=== PATIENT | female | born 1935 | race Caucasian/White ===

== ENCOUNTER 2021-09-09 11:00 | Inpatient (IN) | payer MEDICARE ==
[2021-09-09] MEDS ORDERED: Acetaminophen 325 MG TAB PO PRN (12:12)
[2021-09-09 12:27] VITALS: BMI 30.7
[2021-09-09] MEDS ORDERED: Furosemide 40 MG/4 ML VIAL SLOW IVP SCH ×2 (12:30→16:00)
[2021-09-09] MEDS ORDERED: VANCOMYCIN 1.75 GM/350 ML BAG 1.75 GM in Premix Bag 1 BAG IVPB SCH (13:00)
[2021-09-09 13:05] LABS: Hemoglobin 11.4 g/dL (12.0-15.5); Mean Corpuscular HGB CONC 32.9 g/dL (32.0-36.0); Mean Corpuscular Hemoglobin 30.5 pg (27.0-33.0); Mean Corpuscular Volume 92.8 fl (81.6-98.3); Mean Platelet Volume 9.2 fl (7.4-10.4); Platelet Count 398 10x3/uL (150-450); RBC Distribution Width 13.4 % (11.5-14.5); Red Blood Cell (RBC) Count 3.74 10x6/uL (3.90-5.03); White Blood Cell (WBC) Count 7.9 10x3/uL (3.5-10.5)
[2021-09-09 13:06] LABS: #Monocytes 1.3 10x3/uL (0.0-1.1); #Neutrophils 6.1 10x3/uL (1.5-8.4); %Basophils 0.3 % (0.0-2.0); %Eosinophils 0.3 % (0.0-6.0); %Monocytes 16.3 % (0.0-10.0); %Neutrophils 77.5 % (40.0-75.0)
[2021-09-09 13:47] LABS: ALT (SGPT) 19 U/L (8-55); AST (SGOT) 17 U/L (5-34); Albumin 3.6 g/dL (3.4-4.8); Alkaline Phosphatase 72 U/L (40-110); Anion Gap 15 mmol/L (10-20); BUN (Urea Nitrogen) 9 mg/dL (9.8-20.1); Bilirubin, Total 0.5 mg/dL (0.2-1.2); Calc. Creatinine Clearance 88 mL/min (70-130); Calcium 8.9 mg/dL (7.8-10.44); Carbon Dioxide 29 mmol/L (23-31); Chloride 91 mmol/L (98-107); Globulin 2.7 g/dL (2.4-3.5); Glucose 110 mg/dL (83-110); Potassium 4.4 mmol/L (3.5-5.1); Protein, Total 6.3 g/dL (5.8-8.1); Sodium 131 mmol/L (136-145)
[2021-09-09 13:50] LABS: Eosinophils 1 % (0-10); Lymphocytes 5 % (21-51); Monocytes 11 % (0-10); Reactive Lymphocytes 1 % (0-10)
[2021-09-09 13:51] LABS: Platelet Morphology Comment Appears Adequate
[2021-09-09] MEDS ORDERED: Sodium Chloride 0.9% 100 ML ONE (14:18)
[2021-09-09] MEDS: HYDROcodone/Acetaminophen 5/325 mg Tablet PO PRN ×2 (14:21→21:17)
[2021-09-09] MEDS: Diltiazem 125 MG in Sodium Chloride 0.9% 100 ML IVPB SCH (14:55)
[2021-09-09] MEDS ORDERED: FLU VACC QS2021-22(65YR UP)/PF 240 MCG/0.7 ML SYRINGE IM ONE (15:00)
[2021-09-09] MEDS: Cefepime 1 GM in Sodium Chloride 0.9% 100 ML IVPB SCH (20:43)
[2021-09-09] MEDS: Enoxaparin Sodium 80 MG/0.8 ML SYRINGE SC SCH (20:44)
[2021-09-09] MEDS ORDERED: Lorazepam 2 MG/ML VIAL SLOW IVP SCH (21:15)
[2021-09-10] MEDS: ALPRAZolam 0.5 MG TAB PO PRN (00:31)
[2021-09-10] MEDS: HYDROcodone/Acetaminophen 5/325 mg Tablet PO PRN ×5 (02:36→20:51)
[2021-09-10 04:02] LABS: Hemoglobin 11.8 g/dL (12.0-15.5); Mean Corpuscular Hemoglobin 30.7 pg (27.0-33.0); Mean Corpuscular Volume 90.4 fl (81.6-98.3); Platelet Count 405 10x3/uL (150-450); RBC Distribution Width 13.6 % (11.5-14.5); Red Blood Cell (RBC) Count 3.84 10x6/uL (3.90-5.03); White Blood Cell (WBC) Count 7.5 10x3/uL (3.5-10.5)
[2021-09-10 04:15] LABS: Anion Gap 15 mmol/L (10-20); BUN (Urea Nitrogen) 9 mg/dL (9.8-20.1); Calc. Creatinine Clearance 94 mL/min (70-130); Carbon Dioxide 30 mmol/L (23-31); Chloride 90 mmol/L (98-107); Glucose 115 mg/dL (83-110); Potassium 3.9 mmol/L (3.5-5.1); Sodium 131 mmol/L (136-145)
[2021-09-10 04:16] LABS: INR-International Normal Ratio 1.1
[2021-09-10 04:20] LABS: MDiff Complete? YES
[2021-09-10 04:28] LABS: Band 2 % (5-11); Lymphocytes 3 % (21-51); Monocytes 18 % (0-10); Neutrophil 72 % (42-75); Reactive Lymphocytes 4 % (0-10)
[2021-09-10 04:31] LABS: RBC Morphology Normal
[2021-09-10 04:32] LABS: Platelet Morphology Comment Appears Adequate
[2021-09-10] MEDS: Diltiazem 125 MG in Sodium Chloride 0.9% 100 ML IVPB SCH (04:45)
[2021-09-10] MEDS ORDERED: Lidocaine 1% PF 5 ML VIAL ONE (08:10)
[2021-09-10] MEDS ORDERED: Sodium Bicarbonate 2.5 MEQ/5 ML VIAL ONE (08:10)
[2021-09-10] MEDS: Cefepime 1 GM in Sodium Chloride 0.9% 100 ML IVPB SCH ×2 (09:22→20:03)
[2021-09-10] MEDS: Enoxaparin Sodium 80 MG/0.8 ML SYRINGE SC SCH (09:22)
[2021-09-10] MEDS: Furosemide 40 MG/4 ML VIAL SLOW IVP SCH (09:22)
[2021-09-10] MEDS ORDERED: Polyethylene Glycol 3350 17 GM Packet PO PRN (11:43)
[2021-09-10] MEDS: Senokot S 8.6-50 MG TAB PO PRN (12:12)
[2021-09-10] MEDS ORDERED: VANCOMYCIN 1.25 GM/250 ML BAG 1.25 GM in Premix Bag 1 BAG IVPB SCH (15:00)
[2021-09-10 19:43] LABS: Pleural Fluid, Amylase Less than 30 U/L (Not Available); Pleural Fluid, Glucose 26 mg/dL; Pleural Fluid, LDH 3613 U/L (Not Available)
[2021-09-10] MEDS: Cepastat Lozenges 1 LOZ PO PRN (20:03)
[2021-09-10] MEDS: Apixaban 5 MG TAB PO SCH (20:03)
[2021-09-10] MEDS: Senokot S 8.6-50 MG TAB PO SCH (20:03)
[2021-09-11] MEDS: HYDROcodone/Acetaminophen 5/325 mg Tablet PO PRN ×3 (01:59→20:43)
[2021-09-11] MEDS: Cepastat Lozenges 1 LOZ PO PRN (02:00)
[2021-09-11 05:09] LABS: Anion Gap 15 mmol/L (10-20); BUN (Urea Nitrogen) 11 mg/dL (9.8-20.1); CRP (Inflammatory) 13.02 mg/dL (= or < 0.5); Calc. Creatinine Clearance 85 mL/min (70-130); Calcium 8.7 mg/dL (7.8-10.44); Carbon Dioxide 28 mmol/L (23-31); Chloride 90 mmol/L (98-107); Glucose 114 mg/dL (83-110); Magnesium 1.6 mg/dL (1.6-2.6); Potassium 3.7 mmol/L (3.5-5.1); Sodium 129 mmol/L (136-145)
[2021-09-11 05:18] LABS: Hemoglobin 11.3 g/dL (12.0-15.5); Mean Corpuscular HGB CONC 33.5 g/dL (32.0-36.0); Mean Corpuscular Volume 89.4 fl (81.6-98.3); Mean Platelet Volume 8.8 fl (7.4-10.4); Platelet Count 386 10x3/uL (150-450); RBC Distribution Width 13.4 % (11.5-14.5); Red Blood Cell (RBC) Count 3.77 10x6/uL (3.90-5.03); White Blood Cell (WBC) Count 6.5 10x3/uL (3.5-10.5)
[2021-09-11 05:31] LABS: MDiff Complete? YES; RBC Morphology Normal
[2021-09-11 05:32] LABS: Platelet Morphology Comment Appears Adequate
[2021-09-11 05:43] LABS: Band 3 % (5-11); Lymphocytes 8 % (21-51); Monocytes 17 % (0-10); Neutrophil 72 % (42-75)
[2021-09-11 05:44] LABS: Platelet Clumps SLIGHT
[2021-09-11] MEDS: Apixaban 5 MG TAB PO SCH ×2 (08:27→20:42)
[2021-09-11] MEDS: Cefepime 1 GM in Sodium Chloride 0.9% 100 ML IVPB SCH ×2 (08:27→20:43)
[2021-09-11] MEDS: Furosemide 40 MG/4 ML VIAL SLOW IVP SCH (08:27)
[2021-09-11] MEDS ORDERED: Potassium Chloride 20 MEQ TAB PO SCH (09:00)
[2021-09-11] MEDS ORDERED: Losartan Potassium 50 MG TAB PO SCH (10:00)
[2021-09-11] MEDS: SODIUM CHLORIDE 0.9% IVPB SCH ×2 (11:07→12:44)
[2021-09-11] MEDS: MAGNESIUM IVPB SCH ×2 (11:07→12:44)
[2021-09-11] MEDS: Digoxin 0.125 MG TAB PO SCH ×2 (11:08→11:46)
[2021-09-11] MEDS: Senokot S 8.6-50 MG TAB PO SCH ×2 (11:10→20:44)
[2021-09-11] MEDS ORDERED: Digoxin 0.125 MG TAB PO SCH (12:00)
[2021-09-11] MEDS ORDERED: Magnesium 2 GM/50 ML 2 GM in Premix Bag 1 BAG IVPB SCH (12:00)
[2021-09-11 14:22] LABS: Vancomycin, Trough 7.5 ug/mL
[2021-09-11] MEDS: Vancomycin HCl 1 GM in Sodium Chloride 0.9% 250 ML 250 ML IVPB SCH (15:34)
[2021-09-11] MEDS: ALPRAZolam 0.5 MG TAB PO PRN (20:43)
[2021-09-11] MEDS ORDERED: Temazepam 15 MG CAP PO SCH (21:00)
[2021-09-12] MEDS: HYDROcodone/Acetaminophen 5/325 mg Tablet PO PRN ×4 (02:20→22:48)
[2021-09-12] MEDS: Vancomycin HCl 1 GM in Sodium Chloride 0.9% 250 ML 250 ML IVPB SCH ×2 (02:20→16:42)
[2021-09-12 04:18] LABS: Hemoglobin 10.2 g/dL (12.0-15.5); Mean Corpuscular HGB CONC 33.3 g/dL (32.0-36.0); Mean Corpuscular Hemoglobin 30.5 pg (27.0-33.0); Mean Corpuscular Volume 91.6 fl (81.6-98.3); Mean Platelet Volume 9.4 fl (7.4-10.4); Platelet Count 394 10x3/uL (150-450); RBC Distribution Width 13.3 % (11.5-14.5); Red Blood Cell (RBC) Count 3.34 10x6/uL (3.90-5.03); White Blood Cell (WBC) Count 5.9 10x3/uL (3.5-10.5)
[2021-09-12 04:30] LABS: ALT (SGPT) 14 U/L (8-55); AST (SGOT) 15 U/L (5-34); Albumin 2.9 g/dL (3.4-4.8); Alkaline Phosphatase 66 U/L (40-110); Anion Gap 12 mmol/L (10-20); BUN (Urea Nitrogen) 10 mg/dL (9.8-20.1); Bilirubin, Total 0.4 mg/dL (0.2-1.2); Calc. Creatinine Clearance 88 mL/min (70-130); Calcium 8.3 mg/dL (7.8-10.44); Carbon Dioxide 27 mmol/L (23-31); Chloride 94 mmol/L (98-107); Globulin 2.4 g/dL (2.4-3.5); Glucose 113 mg/dL (83-110); Potassium 4.2 mmol/L (3.5-5.1); Protein, Total 5.3 g/dL (5.8-8.1); Sodium 129 mmol/L (136-145)
[2021-09-12 04:37] LABS: MDiff Complete? YES
[2021-09-12 04:42] LABS: Lymphocytes 3 % (21-51); Monocytes 18 % (0-10); Neutrophil 79 % (42-75)
[2021-09-12 04:43] LABS: Anisocytosis SLIGHT = 6-15 cells (100X) (0-5/hpf)
[2021-09-12 04:44] LABS: Platelet Morphology Comment Appears Adequate
[2021-09-12 08:29] LABS: Magnesium 2.4 mg/dL (1.6-2.6)
[2021-09-12] MEDS: Digoxin 0.125 MG TAB PO SCH (09:19)
[2021-09-12] MEDS: Losartan Potassium 50 MG TAB PO SCH (09:20)
[2021-09-12] MEDS: Cefepime 1 GM in Sodium Chloride 0.9% 100 ML IVPB SCH ×2 (09:20→20:03)
[2021-09-12] MEDS: Apixaban 5 MG TAB PO SCH ×2 (09:20→20:05)
[2021-09-12] MEDS: Senokot S 8.6-50 MG TAB PO SCH ×2 (09:54→20:15)
[2021-09-12] MEDS: ALPRAZolam 0.5 MG TAB PO PRN (20:05)
[2021-09-12] MEDS: Temazepam 15 MG CAP PO SCH (20:05)
[2021-09-13 02:28] LABS: Vancomycin, Trough 18.1 ug/mL
[2021-09-13 02:33] LABS: Hemoglobin 10.3 g/dL (12.0-15.5); Mean Corpuscular HGB CONC 33.2 g/dL (32.0-36.0); Mean Corpuscular Hemoglobin 30.3 pg (27.0-33.0); Mean Corpuscular Volume 91.2 fl (81.6-98.3); Mean Platelet Volume 9.1 fl (7.4-10.4); Platelet Count 399 10x3/uL (150-450); RBC Distribution Width 13.6 % (11.5-14.5); White Blood Cell (WBC) Count 5.9 10x3/uL (3.5-10.5)
[2021-09-13 02:39] LABS: Anion Gap 13 mmol/L (10-20); BUN (Urea Nitrogen) 10 mg/dL (9.8-20.1); CRP (Inflammatory) 9.21 mg/dL (= or < 0.5); Calc. Creatinine Clearance 79 mL/min (70-130); Calcium 8.6 mg/dL (7.8-10.44); Carbon Dioxide 28 mmol/L (23-31); Chloride 93 mmol/L (98-107); Glucose 115 mg/dL (83-110); Potassium 4.5 mmol/L (3.5-5.1); Sodium 129 mmol/L (136-145)
[2021-09-13 02:44] LABS: MDiff Complete? YES
[2021-09-13 02:45] LABS: Platelet Morphology Comment Appears Adequate; RBC Morphology Normal
[2021-09-13 02:47] LABS: Lymphocytes 5 % (21-51); Monocytes 21 % (0-10); Neutrophil 74 % (42-75)
[2021-09-13] MEDS: Vancomycin HCl 1 GM in Sodium Chloride 0.9% 250 ML 250 ML IVPB SCH ×2 (03:03→15:27)
[2021-09-13] MEDS: Cepastat Lozenges 1 LOZ PO PRN ×2 (03:16→20:24)
[2021-09-13] MEDS ORDERED: Lidocaine 5% Patch TD SCH (10:00)
[2021-09-13] MEDS: HYDROcodone/Acetaminophen 5/325 mg Tablet PO PRN ×3 (10:49→20:25)
[2021-09-13] MEDS: Apixaban 5 MG TAB PO SCH ×2 (10:50→20:24)
[2021-09-13] MEDS: Digoxin 0.125 MG TAB PO SCH (10:50)
[2021-09-13] MEDS: Furosemide 40 MG TAB PO SCH (10:51)
[2021-09-13] MEDS: Cefepime 1 GM in Sodium Chloride 0.9% 100 ML IVPB SCH ×2 (10:51→20:23)
[2021-09-13] MEDS: Senokot S 8.6-50 MG TAB PO SCH ×2 (10:52→20:29)
[2021-09-13] MEDS: Losartan Potassium 50 MG TAB PO SCH (10:52)
[2021-09-13] MEDS ORDERED: Vancomycin HCl 750 MG in Sodium Chloride 0.9% 250 ML 250 ML IVPB SCH (15:00)
[2021-09-13] MEDS: Temazepam 15 MG CAP PO SCH (20:24)
[2021-09-13] MEDS: ALPRAZolam 0.5 MG TAB PO PRN (20:24)
[2021-09-13] MEDS: Transdermal Patch Removal TOP SCH (20:29)
[2021-09-14] MEDS: Vancomycin HCl 1 GM in Sodium Chloride 0.9% 250 ML 250 ML IVPB SCH ×2 (02:28→15:24)
[2021-09-14 05:01] LABS: #Eosinphils 0.1 10x3/uL (0.0-0.5); %Basophils 0.4 % (0.0-2.0); %Eosinophils 0.9 % (0.0-6.0); %Lymphocytes 5.6 % (18.0-47.0); %Monocytes 18.1 % (0.0-10.0); %Neutrophils 74.4 % (40.0-75.0); Hemoglobin 10.2 g/dL (12.0-15.5); Mean Corpuscular HGB CONC 32.3 g/dL (32.0-36.0); Mean Corpuscular Hemoglobin 29.9 pg (27.0-33.0); Mean Corpuscular Volume 92.7 fl (81.6-98.3); Mean Platelet Volume 9.3 fl (7.4-10.4); Platelet Count 362 10x3/uL (150-450); RBC Distribution Width 13.6 % (11.5-14.5); Red Blood Cell (RBC) Count 3.41 10x6/uL (3.90-5.03); White Blood Cell (WBC) Count 5.4 10x3/uL (3.5-10.5)
[2021-09-14 05:04] LABS: ALT (SGPT) 13 U/L (8-55); AST (SGOT) 16 U/L (5-34); Albumin 2.9 g/dL (3.4-4.8); Alkaline Phosphatase 62 U/L (40-110); Anion Gap 11 mmol/L (10-20); BUN (Urea Nitrogen) 9 mg/dL (9.8-20.1); Bilirubin, Total 0.3 mg/dL (0.2-1.2); CRP (Inflammatory) 7.81 mg/dL (= or < 0.5); Calc. Creatinine Clearance 80 mL/min (70-130); Calcium 8.7 mg/dL (7.8-10.44); Carbon Dioxide 29 mmol/L (23-31); Chloride 97 mmol/L (98-107); Globulin 2.4 g/dL (2.4-3.5); Glucose 106 mg/dL (83-110); Magnesium 1.8 mg/dL (1.6-2.6); Potassium 4.2 mmol/L (3.5-5.1); Protein, Total 5.3 g/dL (5.8-8.1); Sodium 133 mmol/L (136-145)
[2021-09-14] MEDS: HYDROcodone/Acetaminophen 5/325 mg Tablet PO PRN ×4 (05:40→21:42)
[2021-09-14 05:52] LABS: Lymphocytes 5 % (21-51); Monocytes 17 % (0-10)
[2021-09-14] MEDS: Furosemide 40 MG TAB PO SCH (09:57)
[2021-09-14] MEDS: Lidocaine 5% Patch TD SCH (09:57)
[2021-09-14] MEDS: Apixaban 5 MG TAB PO SCH (09:57)
[2021-09-14] MEDS: Digoxin 0.125 MG TAB PO SCH (09:57)
[2021-09-14] MEDS: Losartan Potassium 50 MG TAB PO SCH (09:57)
[2021-09-14] MEDS: Senokot S 8.6-50 MG TAB PO SCH ×2 (09:58→21:35)
[2021-09-14] MEDS: Cefepime 1 GM in Sodium Chloride 0.9% 100 ML IVPB SCH ×2 (09:59→21:31)
[2021-09-14] MEDS: Temazepam 15 MG CAP PO SCH (21:32)
[2021-09-14] MEDS: ALPRAZolam 0.5 MG TAB PO PRN (21:32)
[2021-09-14] MEDS ORDERED: Cefepime 1 GM VIAL ONE (21:32)
[2021-09-15 02:16] LABS: Vancomycin, Trough 27.2 ug/mL
[2021-09-15] MEDS: HYDROcodone/Acetaminophen 5/325 mg Tablet PO PRN ×4 (04:26→20:40)
[2021-09-15] MEDS: Transdermal Patch Removal TOP SCH ×2 (11:26→21:07)
[2021-09-15] MEDS: Digoxin 0.125 MG TAB PO SCH (11:27)
[2021-09-15] MEDS: Losartan Potassium 50 MG TAB PO SCH (11:27)
[2021-09-15] MEDS: Lidocaine 5% Patch TD SCH (11:27)
[2021-09-15] MEDS: Furosemide 40 MG TAB PO SCH (11:27)
[2021-09-15] MEDS: Cefepime 1 GM in Sodium Chloride 0.9% 100 ML IVPB SCH ×2 (11:27→20:44)
[2021-09-15] MEDS: Senokot S 8.6-50 MG TAB PO SCH ×2 (11:28→20:37)
[2021-09-15 15:00] LABS: Vancomycin, Random 18.3 ug/mL (See Comment)
[2021-09-15 15:12] LABS: ANA Symphony (Qualitative) Negative (Negative); ANA Symphony (Quantitative) 0.5 Ratio (< 0.7 Negative); CCP IgG Antibody 2.5 EliAU/mL (<7 Negative); EliA RAS New Method **** NEW METHOD ****; Rheumatoid Factor IgA Antibody 7.2 IU/mL (<14 Negative); dsDNA IgG Antibody 1.1 IU/mL (<10 Negative)
[2021-09-15] MEDS: Vancomycin HCl 1 GM in Sodium Chloride 0.9% 250 ML 250 ML IVPB SCH (16:51)
[2021-09-15] MEDS: Temazepam 15 MG CAP PO SCH (20:39)
[2021-09-15] MEDS: ALPRAZolam 0.5 MG TAB PO PRN (20:40)
[2021-09-16] MEDS ORDERED: Melatonin 3 MG TAB PO SCH (03:00)
[2021-09-16] MEDS: HYDROcodone/Acetaminophen 5/325 mg Tablet PO PRN ×4 (04:44→20:11)
[2021-09-16 05:04] LABS: Hemoglobin 10.2 g/dL (12.0-15.5); Mean Corpuscular HGB CONC 32.6 g/dL (32.0-36.0); Mean Corpuscular Volume 92.1 fl (81.6-98.3); Mean Platelet Volume 9.3 fl (7.4-10.4); Platelet Count 354 10x3/uL (150-450); RBC Distribution Width 13.7 % (11.5-14.5); White Blood Cell (WBC) Count 5.6 10x3/uL (3.5-10.5)
[2021-09-16 05:15] LABS: MDiff Complete? YES
[2021-09-16 05:17] LABS: Anion Gap 12 mmol/L (10-20); BUN (Urea Nitrogen) 9 mg/dL (9.8-20.1); Calc. Creatinine Clearance 78 mL/min (70-130); Carbon Dioxide 29 mmol/L (23-31); Chloride 95 mmol/L (98-107); Glucose 106 mg/dL (83-110); Potassium 4.1 mmol/L (3.5-5.1); Sodium 132 mmol/L (136-145)
[2021-09-16 05:23] LABS: Lymphocytes 7 % (21-51); Monocytes 14 % (0-10); Neutrophil 79 % (42-75)
[2021-09-16 05:25] LABS: Platelet Morphology Comment Appears Adequate
[2021-09-16 05:26] LABS: RBC Morphology Normal
[2021-09-16] MEDS: Lidocaine 5% Patch TD SCH (09:06)
[2021-09-16] MEDS: ALPRAZolam 0.5 MG TAB PO PRN ×2 (09:09→20:11)
[2021-09-16] MEDS: Losartan Potassium 50 MG TAB PO SCH (09:10)
[2021-09-16] MEDS: Senokot S 8.6-50 MG TAB PO SCH ×2 (09:10→20:13)
[2021-09-16] MEDS: Digoxin 0.125 MG TAB PO SCH (09:10)
[2021-09-16] MEDS: Furosemide 40 MG TAB PO SCH (09:10)
[2021-09-16] MEDS: Cefepime 1 GM in Sodium Chloride 0.9% 100 ML IVPB SCH ×2 (09:11→20:11)
[2021-09-16] MEDS: Ondansetron PF 4 MG/2 ML Vial IVP PRN (10:29)
[2021-09-16 16:09] LABS: Vancomycin, Random 14.7 ug/mL (See Comment)
[2021-09-16] MEDS: Guaifenesin DM 100-10/5 ML UDCUP PO PRN (17:18)
[2021-09-16] MEDS: Vancomycin HCl 1 GM in Sodium Chloride 0.9% 250 ML 250 ML IVPB SCH (17:18)
[2021-09-16] MEDS: Cepastat Lozenges 1 LOZ PO PRN (20:11)
[2021-09-16] MEDS: Temazepam 15 MG CAP PO SCH (20:11)
[2021-09-16] MEDS: Transdermal Patch Removal TOP SCH (20:13)
[2021-09-17 04:40] LABS: Hemoglobin 9.8 g/dL (12.0-15.5); Mean Corpuscular HGB CONC 32.6 g/dL (32.0-36.0); Mean Corpuscular Hemoglobin 30.1 pg (27.0-33.0); Mean Corpuscular Volume 92.3 fl (81.6-98.3); Mean Platelet Volume 9.4 fl (7.4-10.4); Platelet Count 334 10x3/uL (150-450); RBC Distribution Width 13.8 % (11.5-14.5); Red Blood Cell (RBC) Count 3.26 10x6/uL (3.90-5.03); White Blood Cell (WBC) Count 4.9 10x3/uL (3.5-10.5)
[2021-09-17 04:53] LABS: Anion Gap 11 mmol/L (10-20); BUN (Urea Nitrogen) 10 mg/dL (9.8-20.1); Calc. Creatinine Clearance 72 mL/min (70-130); Calcium 8.8 mg/dL (7.8-10.44); Carbon Dioxide 30 mmol/L (23-31); Chloride 96 mmol/L (98-107); Glucose 102 mg/dL (83-110); Potassium 4.3 mmol/L (3.5-5.1); Sodium 133 mmol/L (136-145)
[2021-09-17 05:07] LABS: MDiff Complete? YES
[2021-09-17 05:40] LABS: SARS-CoV-2 NAA Rapid Test Not Detected (NotDetected)
[2021-09-17 05:43] LABS: Lymphocytes 5 % (21-51); Monocytes 15 % (0-10); Neutrophil 78 % (42-75); Reactive Lymphocytes 2 % (0-10)
[2021-09-17 05:44] LABS: Platelet Morphology Comment Appears Adequate
[2021-09-17] MEDS: Digoxin 0.125 MG TAB PO SCH (05:44)
[2021-09-17 05:45] LABS: RBC Morphology Normal
[2021-09-17] MEDS: Losartan Potassium 50 MG TAB PO SCH (05:46)
[2021-09-17] MEDS ORDERED: EPINEPHrine 1 MG/ML AMP ONE (08:43)
[2021-09-17] MEDS ORDERED: Bupivacaine 0.25% HCL 30 ML VIAL ONE (08:43)
[2021-09-17] MEDS ORDERED: PROPOFOL 20 ML ONE (08:47)
[2021-09-17] MEDS ORDERED: Fentanyl 100 MCG/2 ML VIAL ONE (08:47)
[2021-09-17] MEDS ORDERED: Lidocaine 1% PF 5 ML VIAL ONE (08:48)
[2021-09-17] MEDS ORDERED: CEFAZOLIN 1 GM VIAL ONE (08:58)
[2021-09-17] MEDS ORDERED: Ondansetron PF 4 MG/2 ML Vial ONE (09:12)
[2021-09-17] MEDS: Lidocaine 5% Patch TD SCH (12:51)
[2021-09-17] MEDS: Furosemide 40 MG TAB PO SCH (12:51)
[2021-09-17] MEDS: Cefepime 1 GM in Sodium Chloride 0.9% 100 ML IVPB SCH ×2 (12:51→20:26)
[2021-09-17] MEDS: Senokot S 8.6-50 MG TAB PO SCH ×2 (12:51→20:25)
[2021-09-17] MEDS: ALPRAZolam 0.5 MG TAB PO PRN ×2 (12:54→20:25)
[2021-09-17] MEDS: HYDROcodone/Acetaminophen 5/325 mg Tablet PO PRN ×3 (12:54→22:20)
[2021-09-17] MEDS: Vancomycin HCl 1 GM in Sodium Chloride 0.9% 250 ML 250 ML IVPB SCH (18:36)
[2021-09-17] MEDS: Guaifenesin DM 100-10/5 ML UDCUP PO PRN (18:47)
[2021-09-17] MEDS: Temazepam 15 MG CAP PO SCH (20:25)
[2021-09-17] MEDS: Cepastat Lozenges 1 LOZ PO PRN (20:25)
[2021-09-17] MEDS: Transdermal Patch Removal TOP SCH (20:26)
[2021-09-17] MEDS ORDERED: Fluticasone Propionate Nasal Spray 16 gm Bottle NASAL PRN (20:48)
[2021-09-18 05:11] LABS: Mean Corpuscular HGB CONC 32.6 g/dL (32.0-36.0); Mean Corpuscular Hemoglobin 30.1 pg (27.0-33.0); Mean Corpuscular Volume 92.5 fl (81.6-98.3); Mean Platelet Volume 9.4 fl (7.4-10.4); Platelet Count 324 10x3/uL (150-450); RBC Distribution Width 13.8 % (11.5-14.5); Red Blood Cell (RBC) Count 3.32 10x6/uL (3.90-5.03); White Blood Cell (WBC) Count 4.8 10x3/uL (3.5-10.5)
[2021-09-18 05:22] LABS: MDiff Complete? YES
[2021-09-18 05:27] LABS: Anion Gap 11 mmol/L (10-20); BUN (Urea Nitrogen) 11 mg/dL (9.8-20.1); Calc. Creatinine Clearance 69 mL/min (70-130); Calcium 8.8 mg/dL (7.8-10.44); Carbon Dioxide 30 mmol/L (23-31); Chloride 97 mmol/L (98-107); Glucose 104 mg/dL (83-110); Potassium 4.2 mmol/L (3.5-5.1); Sodium 134 mmol/L (136-145)
[2021-09-18 05:28] LABS: Band 2 % (5-11); Eosinophils 2 % (0-10); Lymphocytes 1 % (21-51); Monocytes 19 % (0-10); Myelocyte 1 % (0-0); Neutrophil 73 % (42-75); Nucleated RBC 1 % (0); Reactive Lymphocytes 2 % (0-10)
[2021-09-18 05:30] LABS: Platelet Morphology Comment Appears Adequate; RBC Morphology Normal
[2021-09-18] MEDS: HYDROcodone/Acetaminophen 5/325 mg Tablet PO PRN ×3 (06:43→20:45)
[2021-09-18] MEDS: Cefepime 1 GM in Sodium Chloride 0.9% 100 ML IVPB SCH ×2 (09:13→20:44)
[2021-09-18] MEDS: Furosemide 40 MG TAB PO SCH (09:13)
[2021-09-18] MEDS: Losartan Potassium 50 MG TAB PO SCH (09:14)
[2021-09-18] MEDS: Digoxin 0.125 MG TAB PO SCH (09:14)
[2021-09-18] MEDS: Senokot S 8.6-50 MG TAB PO PRN (09:14)
[2021-09-18] MEDS: Lidocaine 5% Patch TD SCH (09:14)
[2021-09-18] MEDS: Senokot S 8.6-50 MG TAB PO SCH ×2 (09:16→22:15)
[2021-09-18] MEDS: Ondansetron PF 4 MG/2 ML Vial IVP PRN ×2 (10:59→20:46)
[2021-09-18] MEDS ORDERED: Enoxaparin Sodium 80 MG/0.8 ML SYRINGE SC SCH ×2 (11:30→21:00)
[2021-09-18] MEDS ORDERED: Enoxaparin Sodium 80 MG/0.8 ML SYRINGE ONE (12:03)
[2021-09-18 16:30] LABS: Vancomycin, Trough 15.1 ug/mL
[2021-09-18] MEDS: Vancomycin HCl 1 GM in Sodium Chloride 0.9% 250 ML 250 ML IVPB SCH (16:31)
[2021-09-18] MEDS: Temazepam 15 MG CAP PO SCH (20:45)
[2021-09-18] MEDS: ALPRAZolam 0.5 MG TAB PO PRN (20:45)
[2021-09-18] MEDS: Guaifenesin DM 100-10/5 ML UDCUP PO PRN (20:46)
[2021-09-18] MEDS: Cepastat Lozenges 1 LOZ PO PRN (20:46)
[2021-09-18] MEDS: Transdermal Patch Removal TOP SCH (22:24)
[2021-09-19] MEDS: HYDROcodone/Acetaminophen 5/325 mg Tablet PO PRN ×2 (04:25→08:51)
[2021-09-19 04:57] LABS: #Eosinphils 0.1 10x3/uL (0.0-0.5); #Neutrophils 3.3 10x3/uL (1.5-8.4); %Basophils 0.4 % (0.0-2.0); %Eosinophils 1.1 % (0.0-6.0); %Lymphocytes 4.6 % (18.0-47.0); %Monocytes 21.2 % (0.0-10.0); Hemoglobin 9.8 g/dL (12.0-15.5); Mean Corpuscular HGB CONC 32.2 g/dL (32.0-36.0); Mean Corpuscular Hemoglobin 29.8 pg (27.0-33.0); Mean Corpuscular Volume 92.4 fl (81.6-98.3); Mean Platelet Volume 9.5 fl (7.4-10.4); Platelet Count 314 10x3/uL (150-450); RBC Distribution Width 13.6 % (11.5-14.5); Red Blood Cell (RBC) Count 3.29 10x6/uL (3.90-5.03); White Blood Cell (WBC) Count 4.6 10x3/uL (3.5-10.5)
[2021-09-19 05:03] LABS: Anion Gap 12 mmol/L (10-20); BUN (Urea Nitrogen) 10 mg/dL (9.8-20.1); Calc. Creatinine Clearance 74 mL/min (70-130); Calcium 8.7 mg/dL (7.8-10.44); Carbon Dioxide 32 mmol/L (23-31); Chloride 93 mmol/L (98-107); Glucose 105 mg/dL (83-110); Potassium 3.6 mmol/L (3.5-5.1); Sodium 133 mmol/L (136-145)
[2021-09-19] MEDS: Lidocaine 5% Patch TD SCH (08:46)
[2021-09-19] MEDS: Furosemide 40 MG TAB PO SCH (08:51)
[2021-09-19] MEDS: Senokot S 8.6-50 MG TAB PO SCH (08:51)
[2021-09-19] MEDS: Digoxin 0.125 MG TAB PO SCH (08:51)
[2021-09-19] MEDS: ALPRAZolam 0.5 MG TAB PO PRN (08:51)
[2021-09-19] MEDS: Cefepime 1 GM in Sodium Chloride 0.9% 100 ML IVPB SCH (08:52)
[2021-09-19] MEDS: Losartan Potassium 50 MG TAB PO SCH (08:53)
[2021-09-19] MEDS ORDERED: Enoxaparin Sodium 80 MG/0.8 ML SYRINGE SC SCH (09:00)
[2021-09-19] MEDS ORDERED: Furosemide 20 MG/2 ML VIAL SLOW IVP SCH (09:15)
[2021-09-19 12:01] VITALS: BP 120/72; TEMP 97.7
== END 2021-09-19 13:20 | DRG 264 ==
LOC: CSHTELE 11:00 → CSHICU 14:05 → CSHTELE 09-10 09:28
PROVIDERS: ADMIT Family Medicine; ATTEND Internal Medicine
PROC: 0W9B3ZZ Drainage of Left Pleural Cavity, Percutaneous Approach (ICD-10-PCS; 2021-09-10)
PROC: 07B20ZX Excision of Left Neck Lymphatic, Open Approach, Diagnostic (ICD-10-PCS; principal; 2021-09-17)
DX: I11.0 Hypertensive heart disease with heart failure (principal); J96.01 Acute respiratory failure with hypoxia; I50.33 Acute on chronic diastolic (congestive) heart failure; J90 Pleural effusion, not elsewhere classified; I48.11 Longstanding persistent atrial fibrillation; E03.9 Hypothyroidism, unspecified; K21.9 Gastro-esophageal reflux disease without esophagitis; G89.29 Other chronic pain; G47.33 Obstructive sleep apnea (adult) (pediatric); R59.1 Generalized enlarged lymph nodes; Z96.659 Presence of unspecified artificial knee joint; Z96.652 Presence of left artificial knee joint; Z20.822 Contact with and (suspected) exposure to COVID-19; F41.9 Anxiety disorder, unspecified; F32.A Depression, unspecified; Z90.710 Acquired absence of both cervix and uterus; Z87.891 Personal history of nicotine dependence; Z88.2 Allergy status to sulfonamides; Z88.5 Allergy status to narcotic agent; Z88.8 Allergy status to other drugs, medicaments and biological substances; Z79.899 Other long term (current) drug therapy; Z79.01 Long term (current) use of anticoagulants; Z86.711 Personal history of pulmonary embolism
CPT/HCPCS: 32555; 36415; 71045; 71046; 71260; 74177; 76536; 80048; 80053; 80202; 82150; 82565; 82945; 83520; 83615; 83735; 83880; 84145; 84157; 84443; 84520; 84550; 85007; 85025; 85027; 85610; 86038; 86140; 86200; 86225; 87070; 87205; 88112; 88184; 88305; 88333; 88341; 88342; 88360; 93306; 94640; 94760; J0171; J0690; J0692; J1650; J1940; J2060; J2405; J2704; J3010; J3370; J3475; J3490; J7050; J7620; S0020; U0002